=== PATIENT | male | born 1970 | race Caucasian/White ===

== ENCOUNTER 2016-05-05 16:39 | Emergency (ER) | payer OTHER ==
[2016-05-05 16:59] VITALS: BP 158/77
--- NOTE | 2016-05-05 17:32 | UC ---
Elbow Pain - HPI Summary HPI Summary: complaint of left elbow pain was on water slide 3 days ago and hit his arm skin over elbow started tpo feel warm yesterday -hit it on the desk this morning and some pus came out of elbow abrasion feels warmer today- area of redness is increasing not painful with movement denies fever and chills - History of Current Complaint Chief Complaint: [facility] Stated Complaint: ELBOW COMPLAINT Time Seen by Provider: 05/05/16 17:26 Hx Obtained From: Patient - Allergies/Home Medications Allergies/Adverse Reactions: Allergies Allergy/AdvReac Type Severity Reaction Status Date / Time No Known Allergies Allergy Verified 05/05/16 16:59 PMH/Surg Hx/FS Hx/Imm Hx Previously Healthy: Yes - Surgical History Surgical History: None - Family History Known Family History: Negative: Cardiac Disease, Hypertension, Diabetes - Social History Occupation: Employed Full-time Lives: With Family Alcohol Use: None Substance Use Type: None Smoking Status (MU): Never Smoked Tobacco Review of Systems Constitutional: Negative Skin: Negative Eyes: Negative ENT: Negative Respiratory: Negative Cardiovascular: Negative Gastrointestinal: Negative Genitourinary: Negative Motor: Negative Neurovascular: Negative Musculoskeletal: Other: Neurological: Negative Psychological: Negative All Other Systems Reviewed And Are Negative: Yes Physical Exam Triage Information Reviewed: Yes Appearance: Well-Appearing, No Pain Distress Vital Signs: Initial Vital Signs Temp 97.3 F 05/05/16 16:55 Pulse 69 05/05/16 16:55 Resp 18 05/05/16 16:55 BP 158/77 05/05/16 16:55 Pulse Ox 99 05/05/16 16:55 Vital Signs Reviewed: Yes Eyes: Positive: Conjunctiva Clear ENT: Positive: Normal ENT inspection Neck: Positive: No Lymphadenopathy Respiratory: Positive: Lungs clear, Normal breath sounds, No respiratory distress Cardiovascular: Positive: RRR, No Murmur, Pulses Normal Abdomen Description: Positive: Nontender, Soft Bowel Sounds: Positive: Present Musculoskeletal: Positive: Other: - LUE- open abrasion .5x.5cm on elbow, area of rerythema surrounding wound, no edema Neurological: Positive: Alert Psychological Exam: Normal Skin Exam: Normal Elbow Pain Course/Dx - Course Course Of Treatment: exam completed- will treat with course of bactrim -pt traveling tomorrow. pt refuses elbow x-ray- low supsicion for joint involvement. discussed s/s of when to sek emergent care and pt states understanding - Differential Dx/Diagnosis Differential Diagnosis/HQI/PQRI: Cellulitis Provider Diagnoses: left elbow cellulits Discharge - Discharge Plan Condition: Stable Disposition: HOME Prescriptions: Sulfamethox/Trimethoprim DS* [Bactrim DS 800/160 TAB*] 1 tab PO BID #20 tab Patient Education Materials: Cellulitis (ED) Referrals: Ruchi Page MD [Primary Care Provider] - Additional Instructions: Start antibiotic as directed If area of redness or pain increases or you get a fever please seek care in emergency room while you are traveling. Increase fluids and rest Take acetaminophen or ibuprofen for fever or pain Please review your discharge instructions. If your symptoms do not improve please call your primary care provider or return to urgent care
== END 2016-05-05 17:49 | disposition home or self-care (01) ==
LOC: UCEAST 16:39
DX: L03.114 Cellulitis of left upper limb (principal)
CPT/HCPCS: 99212; G0463

== ENCOUNTER 2017-04-22 19:33 | Emergency (ER) | payer OTHER ==
[2017-04-22 19:41] VITALS: BP 161/83
--- NOTE | 2017-04-22 20:10 | UC ---
Respiratory Complaint HPI - HPI Summary HPI Summary: 46 yo WM c/o cough x 2-3 weeks w/o sputum, feels it in the chest whenever he coughs, has been traveling from [place] to [place] to [place] in the past 6 weeks and the coughing worsened and has been settling in the chest. Denies f/c but has had some body aches - History of Current Complaint Chief Complaint: UCGeneralIllness Stated Complaint: FLU-LIKE Time Seen by Provider: 04/22/17 19:51 Hx Obtained From: Patient Onset/Duration: Lasting Weeks, Still Present Timing: Constant Severity Initially: Moderate Pain Intensity: 2 Character: Cough: Nonproductive Associated Signs And Symptoms: Positive: Pleuritic Chest Pain. Negative: Dyspnea, Fever, Chills - Allergies/Home Medications Allergies/Adverse Reactions: Allergies Allergy/AdvReac Type Severity Reaction Status Date / Time No Known Allergies Allergy Verified 04/22/17 19:41 PMH/Surg Hx/FS Hx/Imm Hx - Additional Past Medical History Additional PMH: none - Surgical History Surgical History: None - Family History Known Family History: Negative: Cardiac Disease, Hypertension, Diabetes - Social History Alcohol Use: None Substance Use Type: None Smoking Status (MU): Never Smoked Tobacco Review of Systems Constitutional: Negative Skin: Negative Eyes: Negative ENT: Negative Respiratory: Cough Cardiovascular: Negative Gastrointestinal: Negative Genitourinary: Negative Motor: Negative Neurovascular: Negative Musculoskeletal: Negative Neurological: Negative Psychological: Negative Is Patient Immunocompromised?: No All Other Systems Reviewed And Are Negative: Yes Physical Exam Triage Information Reviewed: Yes Vital Signs: Initial Vital Signs Temp 36.6 C 04/22/17 19:36 Pulse 75 04/22/17 19:36 Resp 16 04/22/17 19:36 BP 161/83 04/22/17 19:36 Pulse Ox 98 04/22/17 19:36 Eye Exam: Normal ENT Exam: Normal Dental Exam: Normal Neck exam: Normal Neck: Positive: No Lymphadenopathy Respiratory: Positive: Rhonchi, Other: - coarse BS B/L Cardiovascular Exam: Normal Abdominal Exam: Normal Musculoskeletal Exam: Normal Neurological Exam: Normal Psychological Exam: Normal Skin Exam: Normal UC Diagnostic Evaluation - Laboratory O2 Sat by Pulse Oximetry: 98 Respiratory Course/Dx - Course Course Of Treatment: rapid flu negative - Differential Dx/Diagnosis Provider Diagnoses: Bronchitis. Elevated blood pressure due to acute illness Discharge - Discharge Plan Condition: Stable Disposition: HOME Prescriptions: Azithromycin TAB* [Zithromax TAB (Z-MAXINE) 250 mg #6 tabs] 2 tab PO .TODAY, THEN 1 DAILY #1 maxine Patient Education Materials: Acute Bronchitis (ED) Referrals: Ruchi Page MD [Primary Care Provider] - Additional Instructions: take medication as directed
== END 2017-04-22 20:05 | disposition home or self-care (01) ==
LOC: UCEAST 19:33
DX: J40 Bronchitis, not specified as acute or chronic (principal); R03.0 Elevated blood-pressure reading, without diagnosis of hypertension
CPT/HCPCS: 87502; 99212; G0463